=== PATIENT | female | born 2000 | race Caucasian/White ===

== ENCOUNTER 2022-02-09 02:12 | Emergency (ER) | payer OTHER ==
[~2022-02-09] VITALS: Ht 170.2 cm; Wt 74.8 kg
[2022-02-09] MEDS ORDERED: FLUO10CA26 PO (02:20)
[2022-02-09] MEDS ORDERED: HYDROMORPHONE 1 MG/1 ML DISP.SYRIN ONE (02:22)
[2022-02-09] MEDS ORDERED: ONDANSETRON 4 MG/2 ML VIAL ONE (02:24)
[2022-02-09] MEDS ORDERED: KETOROLAC TROMETHAMINE 30 MG INJ ONE (02:25)
--- NOTE | 2022-02-09 02:25 | NUR ---
Patient BIB [facility] c/o sharp and cramping pelvic pain with a scale of 10/10 20mins [employer]. Patient denies n/v
[2022-02-09] MEDS: ONDANSETRON 4 MG/2 ML VIAL IV ONE (02:30)
[2022-02-09] MEDS: HYDROMORPHONE 1 MG/1 ML DISP.SYRIN IV ONE (02:30)
[2022-02-09] MEDS: KETOROLAC TROMETHAMINE 15 MG INJ IVP ONE (02:30)
[2022-02-09 02:54] LABS: HEMATOCRIT 34.6 % (31.2-41.9); MEAN CORPUSCULAR VOLUME 90.8 fL (75.5-95.3); PLATELET COUNT (AUTO) 267 K/uL (179-408)
[2022-02-09 02:57] LABS: CARBON DIOXIDE 22 mmol/L (21-32); CHLORIDE 105 mmol/L (98-107); GLUCOSE 145 mg/dL (74-106); POTASSIUM 3.5 mmol/L (3.5-5.1); UREA NITROGEN, BLOOD 13 mg/dL (7-18)
[2022-02-09 03:01] LABS: ALANINE AMINOTRANSFERASE 13 U/L (14-59); ALKALINE PHOSPHATASE 73 U/L (50-136); ASPARTATE AMINOTRANSFERASE 14 U/L (15-37); BILIRUBIN,DIRECT 0.1 mg/dL (0.0-0.2); BILIRUBIN,TOTAL 0.3 mg/dL (0.2-1.0); LIPASE 128 U/L (73-393); TOTAL PROTEIN, SERUM 7.2 g/dL (6.4-8.2)
[2022-02-09 03:08] LABS: *BILIRUBIN,URIN NEGATIVE (NEGATIVE); *BLOOD, URINE 3+ (NEGATIVE); *CLARITY,URINE CLOUDY (CLEAR); *COLOR,URINE PINK (YELLOW); *KETONES,URINE NEGATIVE (NEGATIVE); *UROBILINOGEN,URINE 0.2 E.U./dl (NORMAL); LEUKOCYTE ESTERASE ,URINE NEGATIVE (NEGATIVE); NITRITE, URINE NEGATIVE (NEGATIVE); UGLUCOSE NEGATIVE (NEGATIVE)
[2022-02-09 03:21] LABS: BACTERIA,URINE NONE SEEN /HPF (NONE SEEN); RBC,URINE TNTC /HPF (0-3); SQUAMOUS EPITHELIAL CELL,UR FEW /HPF (NONE SEEN); WBC,URINE 0-3 /HPF (0-3)
--- NOTE | 2022-02-09 04:16 | NUR ---
300cc urine output from urinary catheter
[2022-02-09] MEDS ORDERED: HYDR-4209 PO (05:02)
--- NOTE | 2022-02-09 05:12 | NUR ---
Patient discharged to home in stable condition. Written and verbal after care instructions given. Patient verbalizes understanding of instructions. Stressed follow up or return to ER for worsening s/s. Patient is A/Ox4, no SOB, no CP, no distress noted
[2022-02-09 05:13] VITALS: BP 129/85
== END 2022-02-09 05:13 | disposition home or self-care (01) ==
LOC: ER 02:24
DX: R10.2 Pelvic and perineal pain (principal); R33.9 Retention of urine, unspecified
CPT/HCPCS: 36415; 51702; 76856; 80048; 80076; 81001; 83690; 84702; 85025; 85730; 96374; 96375; 99284; J1170; J1885; J2405; A4663